=== PATIENT | female | born 1980 | race Asian ===

== ENCOUNTER 2023-01-06 13:59 | Outpatient (CLI) | payer BC ==
[2023-01-06 14:54] LABS: #Monocytes 0.3 10x3/uL (0.0-1.1); %Basophils 0.5 % (0.0-2.0); %Eosinophils 0.5 % (0.0-6.0); %Lymphocytes 33.4 % (18.0-47.0); %Monocytes 4.8 % (0.0-10.0); %Neutrophils 60.5 % (40.0-75.0); Mean Corpuscular HGB CONC 32.3 g/dL (32.0-36.0); Mean Corpuscular Hemoglobin 29.7 pg (27.0-33.0); Mean Corpuscular Volume 91.8 fl (81.6-98.3); Mean Platelet Volume 10.1 fl (7.4-10.4); Platelet Count 239 10x3/uL (150-450); Red Blood Cell (RBC) Count 4.04 10x6/uL (3.90-5.03); White Blood Cell (WBC) Count 6.6 10x3/uL (3.5-10.5)
[2023-01-06 15:14] LABS: BHCG - Serum Negative (NEGATIVE)
[2023-01-06 15:15] LABS: Pregs Control Background? CLEAR/WHITE (CLR/WHITE); Pregs Control Bar Appear? YES (CONTROL BAR)
== END 2023-01-06 14:00 | disposition home or self-care (01) ==
LOC: LABBT 13:59
PROVIDERS: ATTEND Orthopaedic Surgery Hand Surgery
DX: Z01.812 Encounter for preprocedural laboratory examination (principal); M89.8X9 Other specified disorders of bone, unspecified site
CPT/HCPCS: 84703; 85025

== ENCOUNTER 2023-01-10 11:44 | Day surgery (SDC) | payer BC ==
[2023-01-07 11:25] VITALS: BMI 19.3
[2023-01-10] MEDS ORDERED: fentaNYL PF 100 MCG/2 ML SYRINGE ONE (12:08)
[2023-01-10] MEDS ORDERED: Neomycin-Polymyxin 1 ML AMP ONE (12:32)
[2023-01-10] MEDS ORDERED: Bacitracin Zinc Ointment 30 gm TUBE ONE (12:32)
[2023-01-10] MEDS ORDERED: Thrombin 5000 UNITS/5 ML VIAL ONE (12:32)
[2023-01-10] MEDS ORDERED: Bupivacaine PF 0.5% 30 ML VIAL ONE (12:32)
[2023-01-10] MEDS ORDERED: Betamet Acet/Betamet Na Ph 30 MG/5 ML VIAL ONE (12:34)
[2023-01-10] MEDS ORDERED: Acetaminophen 325 MG TAB ONE ×2 (13:05→13:06)
[2023-01-10] MEDS ORDERED: CEFAZOLIN 2 GM VIAL ONE (13:20)
[2023-01-10] MEDS ORDERED: Sodium Chloride 0.9% 100 ML ONE (13:20)
[2023-01-10] MEDS ORDERED: Ondansetron PF 4 MG/2 ML Vial ONE (13:27)
[2023-01-10] MEDS ORDERED: PHENYLEPHRINE-NS 100 MCG/ML 10 ML SYRINGE ONE (13:27)
[2023-01-10] MEDS ORDERED: PROPOFOL 200 MG/20 ML VIAL ONE (13:27)
[2023-01-10] MEDS ORDERED: Dexamethasone 20 MG/5 ML VIAL ONE (13:27)
[2023-01-10] MEDS ORDERED: Lidocaine 1% PF 5 ML VIAL ONE (13:27)
[2023-01-10] MEDS ORDERED: Ketorolac Tromethamine 30 MG/ML VIAL ONE (15:48)
== END 2023-01-10 16:50 | disposition home or self-care (01) ==
LOC: SDC 11:44
PROVIDERS: ATTEND Orthopaedic Surgery Hand Surgery
PROC: 0PBT0ZX Excision of Right Finger Phalanx, Open Approach, Diagnostic (ICD-10-PCS; principal; 2023-01-10)
PROC: 01N60ZZ Release Radial Nerve, Open Approach (ICD-10-PCS; principal; 2023-01-10)
DX: M89.8X4 Other specified disorders of bone, hand (principal); G56.81 Other specified mononeuropathies of right upper limb
CPT/HCPCS: 88305; 88311; J0702; J1100; J1885; J2405; J2704; J3490; S0020